=== PATIENT | female | born 1980 | race American Indian/Alaskan Native ===

== ENCOUNTER 2016-12-07 11:23 | Emergency (ER) | payer OTHER, MEDICAID ==
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
[2016-12-07] MEDS ORDERED: MOTRIN PO ONE (14:52)
[2016-12-07 15:16] VITALS: BP 140/82
== END 2016-12-07 15:35 | disposition home or self-care (01) ==
LOC: ED 11:23
DX: S16.1XXA Strain of muscle, fascia and tendon at neck level, initial encounter (principal); M54.6 Pain in thoracic spine; I10 Essential (primary) hypertension; F17.200 Nicotine dependence, unspecified, uncomplicated; V49.49XA Driver injured in collision with other motor vehicles in traffic accident, initial encounter; Y93.89 Activity, other specified; Y99.8 Other external cause status; Y92.89 Other specified places as the place of occurrence of the external cause
CPT/HCPCS: 99282

== ENCOUNTER 2017-04-20 16:31 | Emergency (ER) | payer OTHER, MEDICAID ==
[2017-04-20 17:00] VITALS: BP 151/95
[2017-04-20 18:44] LABS: HCG Qualitative,Urine Negative (Negative)
--- NOTE | 2017-04-20 20:26 | XRay Report ---
FINAL REPORT EXAM: XR SPINE CERVICAL 2-3V HISTORY: pain/CERVICAL COMPARISON: None available. FINDINGS: Four total images of the cervical spine obtained. There is straightening of the normal lordotic curvature which may relate to patient positioning or muscle spasm. Cervical vertebral body heights are preserved. Minimal loss of disc height endplate osteophyte C3-C4 through C5-C6 levels. Odontoid process grossly intact. IMPRESSION: No acute bony findings. There is straightening of the normal lordotic curvature which may relate to patient positioning or muscle spasm. Mild degenerative changes.
--- NOTE | 2017-04-20 20:26 | XRay Report ---
FINAL REPORT EXAM: XR SPINE LUMBOSACRAL 2-3V HISTORY: pain/LUMBAR COMPARISON: None available. FINDINGS: Four total images of the lumbar spine obtained. Lumbar vertebral body heights preserved. Moderate loss of disc height endplate osteophyte L5-S1 level. Remaining disc heights are preserved. Pedicles are intact. Minimal levoconvex curvature. IMPRESSION: Lumbar vertebral body heights are preserved. Moderate focal degenerative changes at the L5-S1 level.
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
== END 2017-04-20 20:48 | disposition home or self-care (01) ==
LOC: ED 16:31
DX: M54.5 Low back pain (principal)
CPT/HCPCS: 72040; 72100; 81025

== ENCOUNTER 2017-07-16 17:59 | Emergency (ER) | payer SELFPAY ==
[2017-07-16 18:10] VITALS: BP 132/81
--- NOTE | 2017-07-16 23:35 | Emergency Department Report ---
ED ENT HPI - General Chief complaint: Earache Stated complaint: EARACHE Time Seen by Provider: 07/16/17 23:15 Source: patient Mode of arrival: Ambulatory Limitations: No Limitations - History of Present Illness Initial comments: This is a 37-year-old -[place] female who presents with right ear pain for the past 3 days. Patient reports noticing drainage and swelling around right ear. Patient reports when symptoms started with itching initially she started using peroxide and garlic oil with no improvement of symptoms. She is now having difficulty chewing on the right side and muffled hearing on the right. MD complaint: ear pain (right ear) -: days(s) Location: R ear Severity: severe Severity scale (0 -10): 10 Quality: aching, sharp Consistency: constant Improves with: none Worsens with: eating Associated Symptoms: fever, discharge from ear (clear discharge), rhinorrhea. denies: cough, gum swelling, toothache, pain with swallowing, sore throat, tinnitus, hearing loss - Related Data Previous Rx's Medication Instructions Recorded Last Taken Type Cyclobenzaprine [Flexeril 10 MG 10 mg PO TID PRN #15 tablet 04/20/17 Unknown Rx TAB] Ibuprofen [Motrin 600 MG tab] 600 mg PO Q8H PRN #15 tablet 04/20/17 Unknown Rx Acetaminophen/Codeine [Tylenol 1 tab PO Q6H PRN #15 tab 07/17/17 Unknown Rx /Codeine # 3 tab] Amoxicillin 500 mg PO BID #20 capsule 07/17/17 Unknown Rx Allergies Allergy/AdvReac Type Severity Reaction Status Date / Time No Known Allergies Allergy Verified 07/16/17 18:08 ED Dental HPI - General Chief complaint: Earache Stated complaint: EARACHE Time Seen by Provider: 07/16/17 23:15 Source: patient Mode of arrival: Ambulatory Limitations: No Limitations - Related Data Previous Rx's Medication Instructions Recorded Last Taken Type Cyclobenzaprine [Flexeril 10 MG 10 mg PO TID PRN #15 tablet 04/20/17 Unknown Rx TAB] Ibuprofen [Motrin 600 MG tab] 600 mg PO Q8H PRN #15 tablet 04/20/17 Unknown Rx Acetaminophen/Codeine [Tylenol 1 tab PO Q6H PRN #15 tab 07/17/17 Unknown Rx /Codeine # 3 tab] Amoxicillin 500 mg PO BID #20 capsule 07/17/17 Unknown Rx Allergies Allergy/AdvReac Type Severity Reaction Status Date / Time No Known Allergies Allergy Verified 07/16/17 18:08 ED Review of Systems ROS: Stated complaint: EARACHE Other details as noted in HPI Constitutional: fever. denies: chills ENT: ear pain (right ear pain), congestion. denies: throat pain, dental pain Respiratory: denies: cough, shortness of breath, wheezing Cardiovascular: denies: chest pain, palpitations Gastrointestinal: denies: abdominal pain, nausea, vomiting, diarrhea Neurological: headache. denies: weakness, numbness, paresthesias Psychiatric: denies: anxiety, depression ED Past Medical Hx - Past Medical History Previous Medical History?: No Hx Hypertension: Yes - Surgical History Additional Surgical History: x1; back surgery - Social History Smoking Status: Current Some Day Smoker Substance Use Type: None - Medications Home Medications: Home Medications Medication Instructions Recorded Confirmed Last Taken Type Cyclobenzaprine [Flexeril 10 MG 10 mg PO TID PRN #15 tablet 04/20/17 Unknown Rx TAB] Ibuprofen [Motrin 600 MG tab] 600 mg PO Q8H PRN #15 tablet 04/20/17 Unknown Rx Acetaminophen/Codeine [Tylenol 1 tab PO Q6H PRN #15 tab 07/17/17 Unknown Rx /Codeine # 3 tab] Amoxicillin 500 mg PO BID #20 capsule 07/17/17 Unknown Rx ED Physical Exam - General Limitations: No Limitations General appearance: alert, in no apparent distress - ENT ENT exam: Present: mucous membranes moist. Absent: TM's normal bilaterally ( right TM erythematous and bulging, and multiple) - Respiratory Respiratory exam: Present: normal lung sounds bilaterally. Absent: respiratory distress, wheezes, rales, rhonchi, stridor - Cardiovascular Cardiovascular Exam: Present: regular rate, normal rhythm, normal heart sounds. Absent: systolic murmur, diastolic murmur, rubs, gallop - GI/Abdominal GI/Abdominal exam: Present: soft, normal bowel sounds. Absent: distended, tenderness, guarding, rebound, rigid, organomegaly, mass - Neurological Exam Neurological exam: Present: alert, oriented X3 - Psychiatric Psychiatric exam: Present: normal affect, normal mood - Skin Skin exam: Present: warm, dry, intact, normal color. Absent: rash ED Course Vital Signs 07/16/17 18:08 Temperature 99.2 F Pulse Rate 77 Respiratory 18 Rate Blood Pressure 132/81 O2 Sat by Pulse 98 Oximetry ED Medical Decision Making - Medical Decision Making This is a 37-year-old female that presents with right ear pain for 3 days. Patient is stable and was examined by me. Vitals normal. Physical assessment susceptible of serous otitis media of right ear. Start amoxicillin, tylenol or ibuprofen for pain. Discussed plan with patient and she agreed with plan. Discharged home in stable condition. Follow up with PCP in 24-72 hours. Critical care attestation.: If time is entered above; I have spent that time in minutes in the direct care of this critically ill patient, excluding procedure time. ED Disposition Clinical Impression: Otitis media Qualifiers: Otitis media type: serous Chronicity: acute Laterality: right Recurrence: not specified as recurrent Qualified Code(s): H65.01 - Acute serous otitis media, right ear Disposition: TO HOME OR SELFCARE Is pt being admited?: No Does the pt Need Aspirin: No Condition: Stable Instructions: Otitis Media (ED) Additional Instructions: Give tylenol or ibuprofen for pain every 6-8 hours. Take antibiotics as prescribed to avoid recurrence of the ear infection. Avoid high altitudes, may worsen the pain during ear infection. If symptoms do not improve within 2 to 3 days, then follow up with primary care provider. Prescriptions: Acetaminophen/Codeine [Tylenol /Codeine # 3 tab] 1 tab PO Q6H PRN #15 tab PRN Reason: Pain Amoxicillin 500 mg PO BID #20 capsule Referrals: [facility] [Outside] - 3-5 Days [facility] [Outside] - 3-5 Days [facility] [Outside] - 3-5 Days Time of Disposition: 00:02 Print Language: SENEGALESE
[2017-07-17] MEDS ORDERED: TRIMOX PO ONE (00:02)
[2017-07-17] MEDS ORDERED: ULTRAM PO ONE (00:02)
== END 2017-07-17 00:28 | disposition home or self-care (01) ==
LOC: ED 17:59
DX: H66.91 Otitis media, unspecified, right ear (principal); I10 Essential (primary) hypertension; F17.200 Nicotine dependence, unspecified, uncomplicated
CPT/HCPCS: 99282

== ENCOUNTER 2019-11-25 21:00 | Emergency (ER) | payer SELFPAY | END 2019-11-25 21:15 | disposition left against medical advice (07) | LOC: ED 21:00 | DX: Z53.21 Procedure and treatment not carried out due to patient leaving prior to being seen by health care provider (principal) ==

== ENCOUNTER 2019-11-26 11:10 | Emergency (ER) | payer OTHER, MEDICAID ==
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
[2019-11-26 11:49] VITALS: BP 140/95
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
== END 2019-11-26 14:00 | disposition home or self-care (01) ==
LOC: ED 11:10
DX: S13.4XXA Sprain of ligaments of cervical spine, initial encounter (principal); I10 Essential (primary) hypertension; F17.200 Nicotine dependence, unspecified, uncomplicated; Z98.890 Other specified postprocedural states; Z79.1 Long term (current) use of non-steroidal anti-inflammatories (NSAID); Z79.2 Long term (current) use of antibiotics; Z79.899 Other long term (current) drug therapy; V49.49XA Driver injured in collision with other motor vehicles in traffic accident, initial encounter; Y93.89 Activity, other specified; Y92.410 Unspecified street and highway as the place of occurrence of the external cause; Y99.8 Other external cause status
CPT/HCPCS: 72040; 72070